=== PATIENT | male | born 1935 | race Caucasian/White ===

== ENCOUNTER 2018-08-14 07:09 | Day surgery (SDC) | payer MEDICARE ==
[~2018-08-14] VITALS: Ht 175.3 cm; Wt 80.0 kg
[2018-08-14] MEDS ORDERED: HYDROCHLOROTH12.5 M1 PO (08:04)
[2018-08-14] MEDS ORDERED: GABAPENTIN100 MG PO (08:04)
[2018-08-14] MEDS ORDERED: OMEPRAZOLE20 M1 PO (08:04)
[2018-08-14] MEDS ORDERED: PROTONIX40 MG PO (08:05)
[2018-08-14] MEDS ORDERED: TOPROL XL50 MG PO (08:05)
[2018-08-14] MEDS ORDERED: CARDIZEM CD180 MG PO (08:06)
[2018-08-14] MEDS ORDERED: XANAX0.5 MG PO (08:06)
[2018-08-14] MEDS ORDERED: COZAAR50 MG PO (08:07)
[2018-08-14] MEDS ORDERED: CARDURA4 MG PO (08:07)
[2018-08-14] MEDS ORDERED: LIPITOR40 MG PO (08:09)
[2018-08-14 08:14] VITALS: BP 139/56; Ht 175.3 cm; Wt 80.0 kg
[2018-08-14 09:40] LABS: HEMATOCRIT 35.3 % (42.0-54.0); HEMOGLOBIN 12.2 g/dL (13.5-17.5); MCH 31.2 pg (26.0-34.0); MCHC 34.6 g/dL (31.0-37.0); MCV 90.3 fL (80.0-100.0); MEAN PLATELET VOLUME 9.7 fL (7.4-10.4); RBC 3.91 10x6/uL (4.20-6.10); RDW 12.3 % (11.5-14.5); WBC 5.4 10x3/uL (4.8-10.8)
--- NOTE | 2018-08-14 10:58 | NUR ---
1046 DC'D IV. CATHETER INTACT. NO BLEEDING AT SITE. BANDAID APPLIED.
--- NOTE | 2018-08-14 18:50 | OP ---
PATIENT NAME: ALAN GALEANA MEDICAL RECORD: [id number] :37 LOCATION:[facility] ADMISSION DATE: SURGEON: ALEXIS SINGH MD DATE OF OPERATION: 08/14/2018 PROCEDURE: EGD with biopsy and esophageal balloon dilatation. REFERRING PHYSICIAN: Fracisco Peguero MD CORPORATE SPECIALIST/ONCOLOGIST: Mustapha Lubin MD INDICATIONS: Mr. 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 He has had symptoms of dysphagia, epigastric pain, change in his bowel habits and abnormal weight loss. His CEA level is elevated (05/23/2018) CEA level was 14.9 and 03/21/2018, CEA level was 6.9. His last EGD was 07/23/2014 with finding showing gastritis, gastric polyp, esophageal ring status post esophageal balloon dilatation, small sliding type hiatal hernia (biopsies were negative for Helicobacter pylori). He presents for outpatient EGD. PREMEDICATIONS: Total IV anesthesia (coronary artery disease) propofol 150 mg. INSTRUMENT: Olympus video gastroscope and esophageal balloon dilator 54-60 Armenian. PROCEDURE AND FINDINGS: After receiving informed consent, Mr. Galeana's posterior pharynx was anesthetized with Cetacaine spray, placed in left lateral decubitus position, sedated as per anesthesia. After achieving adequate level of sedation, gastroscope was introduced per orally and advanced to duodenum without difficulty. The esophageal mucosa was without erythema or ulcers. At the GE junction, was a nonobstructive Schatzki's ring. A small sliding type hiatal hernia is present. In the stomach, there was a small amount of bilious backwash and there was mild prepyloric and antral erythema and antral biopsies were obtained to rule out Helicobacter pylori. There were 3 polyps in the fundus measuring 0.3-0.5 cm in size, sessile that were biopsied. Pylorus was patent and competent. Duodenal mucosa was without erythema or ulcers, appeared normal to the second portion. Biopsies were taken from the second portion of duodenum to rule out celiac disease. The gastroscope was then withdrawn to the stomach. Esophageal balloon dilator was then passed through the gastroscope and positioned midway across the distal esophagus insulated to a 60-Armenian size, held in place on the appropriate PSI for 30 seconds, then deflated with good results. The balloon was withdrawn and then biopsies were obtained from the mid and distal esophagus. Gastroscope was then withdrawn. Mr. Galeana tolerated procedure well, no immediate complications. ASSESSMENT: 1. Nonobstructive Schatzki's ring status post esophageal balloon dilatation. 2. Small sliding type hiatal hernia. 3. Mild gastritis, rule out Helicobacter pylori. 4. Three small gastric fundal polyps, status post biopsy. 5. Normal-appearing duodenum, status post biopsy to exclude celiac disease. 6. Epigastric pain. 7. Elevated CEA level. OPERATIVE REPORT [id number] TAWANDAALAN RECOMMENDATIONS: 1. Follow up histopathology. 2. Soft diet today. 3. Colonoscopy scheduled for 08/30/2018. TRANSINT:[id number] Voice Confirmation ID: [id number] DOCUMENT ID: [id number] ALEXIS SINGH MD at 1850 CC: LIEN PEGUERO MD and MUSTAPHA LUBIN MD [id number] DICTATION DATE: 08/14/18 1016 COMMISSIONING SPECIALIST: 08/14/18 1211 [facility] 08/14/18 [facility] [address] [place] [address]
== END 2018-08-14 11:04 | disposition home or self-care (01) ==
LOC: D.OPS 07:09
PROVIDERS: Anesthesiology; ATTEND Internal Medicine Gastroenterology
DX: K22.2 Esophageal obstruction (principal); K44.9 Diaphragmatic hernia without obstruction or gangrene; K29.70 Gastritis, unspecified, without bleeding